=== PATIENT | male | born 1985 | race Caucasian/White ===

== ENCOUNTER → 2017-04-10 | Outpatient (CLI) | payer OTHER ==
--- NOTE | 2017-04-10 14:47 | Diagnostic Imaging Report ---
PROCEDURE: CT chest without contrast. TECHNIQUE: Multiple contiguous axial images were obtained through the chest without the use of intravenous contrast. INDICATION: History of RSV. Question pneumonia. Flulike and cold-like symptoms. EXAMINATION: CT chest without contrast 04/10/2017. COMPARISON: None. FINDINGS: There is a tree in bud type appearance to the right mid and upper lobe laterally most consistent with atypical pneumonia. A few very vague airspace opacities are scattered throughout the left mid lung. Similar findings seen in the periphery of the lingula. There are multiple airspace opacities throughout the left lower lobe. No pleural effusions are seen and there is no pericardial effusion. The nonopacified mediastinum demonstrates no mediastinal adenopathy or hilar adenopathy. There is no axillary adenopathy. Visualized upper abdominal structures demonstrate nonspecific findings due to lack of contrast. There is a vague hypodensity within the right lower liver anterior to the gallbladder. This could be better characterized with postcontrast imaging or sonography. Osseous structures unremarkable. IMPRESSION: 1. Scattered nonspecific airspace opacities throughout both lungs the largest areas are in the left lower lobe and could be due to a multifocal pneumonia. These would be atypical for process such as septic emboli given somewhat central appearance but clinical correlation with symptoms recommended. Additionally there is a tree in bud type appearance throughout the right mid and upper lobe typically seen in atypical type of pneumonia again correlation with symptoms recommended. Followup is recommended to assure complete resolution of these findings. 2. Vague hypodensity within right lobe of the liver is nonspecific without contrast see above description and recommendations. Report was faxed to office of Dr. Azevedo by shaka at 2:39 p.m. Dictated by: Dictated on workstation # [id number]
== END ==
LOC: RAD 11:19
PROVIDERS: ATTEND Internal Medicine Hematology
DX: J98.4 Other disorders of lung (principal); B97.4 Respiratory syncytial virus as the cause of diseases classified elsewhere
CPT/HCPCS: 71250

== ENCOUNTER → 2020-01-18 | Outpatient (CLI) | payer OTHER | LOC: LABNPT 10:38 | DX: R50.9 Fever, unspecified (principal); Z20.828 Contact with and (suspected) exposure to other viral communicable diseases | CPT/HCPCS: 87635 ==

== ENCOUNTER 2020-07-30 00:28 | Emergency (ER) | payer OTHER ==
[~2020-07-30] VITALS: Ht 180.3 cm; Wt 71.0 kg
[2020-07-30] MEDS ORDERED: NS IV 1000 ML 1,000 ML IV SCH (01:00)
[2020-07-30] MEDS ORDERED: ONDANSETRON 4 MG/2 ML (SDV) Z0FRAN IVP ONE (01:00)
--- NOTE | 2020-07-30 01:01 | ED Abdominal Pain ---
General Chief Complaint: Abdominal/GI Problems Stated Complaint: VOMITTING X 6.5 HOURS Nursing Triage Note: Pt ambulatory into ER with complaint of vomiting since 1800 last night. PT states that he was fine prior to that. Pt denies chest pain, or diarrhea. Pt states that lower back is sore, but states that its from throwing up so much. Pt has no other complaints. Sepsis Screen: No Definite Risk Source of Information: Patient Exam Limitations: No Limitations History of Present Illness Date Seen by Provider: Jul 30, 2020 Time Seen by Provider: 00:45 Initial Comments Patient is a 35-year-old male who presents to the emergency room by private vehicle this evening with a chief complaint of about 6-1/2 hours of profusely vomiting. Patient states that he felt well up until about 6 hours ago. He went golfing today ate some chicken tenders around 3:00 and then 3 hours later had the onset of severe nausea with vomiting continuously since that time. 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 He follows up yearly with [facility]. Patient denies any sick contacts recently. Nobody else is sick at home. He has a baby at home that is 10 days old. Patient complains of chills. No known fevers. He states he has a mild stomachache from the retching. He also states that diarrhea started approximately 1 hour prior to arrival. Patient denies any blood in his vomitus or in his stool. No coffee-ground emesis. He has a history of hypertension and also takes Pepcid for gastroesophageal reflux. He did attempt to take some Zofran this evening but believes that he vomited it back up. Patient has a history of orthopedic surgeries, hernia repair and liver biopsy. All other review of systems reviewed and negative except as stated. Timing/Duration: 4-6 Hours Severity/Quality: Severe, Aching Location: Generalized Abdomen Radiation: No Radiation Activities at Onset: None Associated Symptoms: Other (chills) Allergies and Home Medications Allergies Coded Allergies: No Known Drug Allergies (Unverified , 02/20/09) Home Medications Ondansetron 4 Mg Tab.rapdis, 4 MG PO Q8H PRN for nausea and vomiting Prescribed by: GIOVANA ANDREW on 07/30/20 0211 Patient Home Medication List Home Medication List Reviewed: Yes Review of Systems Review of Systems Constitutional: see HPI EENTM: No Symptoms Reported Respiratory: No Symptoms Reported Cardiovascular: No Symptoms Reported Gastrointestinal: Nausea, Vomiting Genitourinary: No Symptoms Reported Musculoskeletal: no symptoms reported Skin: no symptoms reported All Other Systems Reviewed Negative Unless Noted: Yes Past Ennvxew-Kugowe-Bkgudi Hx Patient Social History Alcohol Use: Denies Use 2nd Hand Smoke Exposure: No Recent Infectious Disease Expo: No Recent Hopitalizations: No Immunizations Up To Date Tetanus Booster (TDap): Less than 5yrs PED Vaccines UTD: Yes Seasonal Allergies Seasonal Allergies: No Past Medical History Surgeries: Yes Orthopedic Respiratory: No Cardiac: No Neurological: No Reproductive Disorders: No Sexually Transmitted Disease: No Genitourinary: No Gastrointestinal: No Musculoskeletal: No (ACL TEAR AND TEAR TO MENISCUS) Endocrine: No Cancer: Yes Leukemia Did You Recieve Any Treatments: Yes What Type of Treatment Did You: Chemotherapy, Radiation Remission since 2014 Psychosocial: No Integumentary: No Blood Disorders: No Physical Exam Vital Signs Vital Signs - First Documented 07/30/20 00:38 Temp 36.5 Pulse 126 Resp 16 B/P (MAP) 129/107 (114) O2 Delivery Room Air Capillary Refill : Less Than 3 Seconds Height/Weight/BMI Height: '" Weight: lbs. oz. kg; 21.00 BMI Method: General Appearance: WD/WN, no apparent distress HEENT: PERRL/EOMI, other (dry oral mucosa) Neck: full range of motion Respiratory: lungs clear, normal breath sounds, no respiratory distress, no accessory muscle use Cardiovascular: regular rate, rhythm Gastrointestinal: soft, abnormal bowel sounds (hypoactive) Extremities: normal range of motion, normal inspection Neurologic/Psychiatric: alert, normal mood/affect, oriented x 3 Skin: normal color, diaphoresis Progress/Results/Core Measures Results/Orders Lab Results Laboratory Tests Test 07/30/20 00:55 Range/Units White Blood Count 16.3 H 4.3-11.0 10^3/uL Red Blood Count 5.76 H 4.30-5.52 10^6/uL Hemoglobin 17.5 13.3-17.7 g/dL Hematocrit 50 40-54 % Mean Corpuscular Volume 86 80-99 fL Mean Corpuscular Hemoglobin 30 25-34 pg Mean Corpuscular Hemoglobin Concent 35 32-36 g/dL Red Cell Distribution Width 11.7 10.0-14.5 % Platelet Count 195 130-400 10^3/uL Mean Platelet Volume 10.4 9.0-12.2 fL Immature Granulocyte % (Auto) 0 % Neutrophils (%) (Auto) 91 H 42-75 % Lymphocytes (%) (Auto) 3 L 12-44 % Monocytes (%) (Auto) 5 0-12 % Eosinophils (%) (Auto) 0 0-10 % Basophils (%) (Auto) 0 0-10 % Neutrophils # (Auto) 14.8 H 1.8-7.8 10^3/uL Lymphocytes # (Auto) 0.5 L 1.0-4.0 10^3/uL Monocytes # (Auto) 0.8 0.0-1.0 10^3/uL Eosinophils # (Auto) 0.0 0.0-0.3 10^3/uL Basophils # (Auto) 0.0 0.0-0.1 10^3/uL Immature Granulocyte # (Auto) 0.1 0.0-0.1 10^3/uL Neutrophils % (Manual) 88 % Lymphocytes % (Manual) 2 % Monocytes % (Manual) 7 % Band Neutrophils 3 % Blood Morphology Comment NORMAL Sodium Level 141 135-145 MMOL/L Potassium Level 3.9 3.6-5.0 MMOL/L Chloride Level 103 98-107 MMOL/L Carbon Dioxide Level 20 L 21-32 MMOL/L Anion Gap 18 H 5-14 MMOL/L Blood Urea Nitrogen 19 H 7-18 MG/DL Creatinine 1.22 0.60-1.30 MG/DL Estimat Glomerular Filtration Rate > 60 BUN/Creatinine Ratio 16 Glucose Level 163 H 70-105 MG/DL Calcium Level 9.8 8.5-10.1 MG/DL My Orders Orders - GIOVANA ANDREW MD Ed Iv/Invasive Line Start (07/30/20 00:51) Cbc With Automated Diff (07/30/20 00:51) Basic Metabolic Panel (07/30/20 00:51) Ns Iv 1000 Ml (Sodium Chloride 0.9%) (07/30/20 01:00) Ondansetron Injection (Zofran Injectio (07/30/20 01:00) Manual Differential (07/30/20 00:55) Rx-Ondansetron Po (Rx-Zofran Po) (07/30/20 02:01) Promethazine Injection (Phenergan Injec (07/30/20 02:15) Pantoprazole Injection (Protonix Injecti (07/30/20 03:45) Diphenhydramine Injection (Benadryl Inje (07/30/20 03:45) Medications Given in ED Current Medications Medications Dose Ordered Sig/Jennifer Route Start Time Stop Time Status Last Admin Dose Admin Ondansetron HCl 8 mg ONCE ONCE IVP 07/30/20 01:00 07/30/20 01:01 DC 07/30/20 01:01 8 MG Promethazine HCl 25 mg ONCE ONCE IVP 07/30/20 02:15 07/30/20 02:16 DC 07/30/20 02:17 25 MG Vital Signs/I&O 07/30/20 00:38 Temp 36.5 Pulse 126 Resp 16 B/P (MAP) 129/107 (114) O2 Delivery Room Air Blood Pressure Mean: 114 Progress Progress Note : Time: 01:24 Progress Note re-evaluated patient states feels that nausea is much better; having chills. 0201 continuing to feel better. chills have improved. trying to sip on some water. 0227 drank some water and got up to the bathroom. by the time he got back to bed, started retching again. will follow up with some phenergan. 0424 after phenergan and benadryl, feeling some improvement. desires discharge. will send home with ODT zofran Departure Impression Primary Impression: Acute gastroenteritis Disposition: 01 HOME, SELF-CARE Condition: Stable Departure-Patient Inst. Decision time for Depature: 02:02 Referrals: NO,LOCAL PHYSICIAN (PCP/Family) Primary Care Physician Patient Instructions: [id number] Add. Discharge Instructions: [place] diet for the next 12 to 24 hours. Sip on clear liquids throughout the day tomorrow. Try to stay well-hydrated. Take the Zofran, 4 mg tablets every 6-8 hours as needed for nausea and vomiting. Return to the emergency department if you have any fever over 101, return of nausea and vomiting abdominal pain or other emergent concerning symptoms. Scripts Ondansetron (Ondansetron Odt) 4 Mg Tab.rapdis 4 MG PO Q8H PRN for nausea and vomiting, #30 TAB Prov: GIOVANA ANDREW MD 07/30/20 GIOVANA ANDREW MD Jul 30, 2020 01:01
[2020-07-30 01:03] LABS: BASOPHILS % (AUTO) 0 % (0-10); EOSINOPHILS % (AUTO) 0 % (0-10); HEMATOCRIT 50 % (40-54); HEMOGLOBIN 17.5 g/dL (13.3-17.7); LYMPHOCYTES # (AUTO) 0.5 10^3/uL (1.0-4.0); LYMPHOCYTES % (AUTO) 3 % (12-44); MEAN CORPUSCULAR HEMOGLOBIN 30 pg (25-34); MEAN CORPUSCULAR HGB CONC 35 g/dL (32-36); MEAN CORPUSCULAR VOLUME 86 fL (80-99); MEAN PLATELET VOLUME 10.4 fL (9.0-12.2); MONOCYTES # (AUTO) 0.8 10^3/uL (0.0-1.0); MONOCYTES % (AUTO) 5 % (0-12); NEUTROPHILS # (AUTO) 14.8 10^3/uL (1.8-7.8); NEUTROPHILS % (AUTO) 91 % (42-75); PLATELET COUNT 195 10^3/uL (130-400); WHITE BLOOD COUNT 16.3 10^3/uL (4.3-11.0)
[2020-07-30 01:16] LABS: CHLORIDE 103 MMOL/L (98-107); POTASSIUM 3.9 MMOL/L (3.6-5.0); SODIUM 141 MMOL/L (135-145)
[2020-07-30 01:17] LABS: CALCIUM 9.8 MG/DL (8.5-10.1); GLUCOSE 163 MG/DL (70-105)
[2020-07-30 01:19] LABS: CARBON DIOXIDE 20 MMOL/L (21-32)
[2020-07-30 01:21] LABS: CREATININE SERUM 1.22 MG/DL (0.60-1.30); GFR ESTIMATED > 60
[2020-07-30 01:22] LABS: BUN/CREATININE RATIO 16
[2020-07-30 01:45] LABS: BAND NEUTROPHILS 3 %; LYMPHOCYTES % (MANUAL) 2 %; MONOCYTES % (MANUAL) 7 %; NEUTROPHILS % (MANUAL) 88 %; RBC MORPH NORMAL
[2020-07-30] MEDS ORDERED: RX-ONDANSETRON 4 MG ODT (ZOFRAN) PPK #4 PO STA ×2 (02:01→04:26)
[2020-07-30] MEDS ORDERED: ONDA4TAB11 PO (02:11)
[2020-07-30] MEDS ORDERED: PROMETHAZINE INJ 25 MG/ML (PHENERGAN) AMP IVP ONE (02:15)
[2020-07-30] MEDS ORDERED: PANTOPRAZOLE 40 MG (PROTONIX) VIAL IV ONE (03:45)
[2020-07-30] MEDS ORDERED: diphenhydrAMINE 50 MG/ML INJ (BENADRYL) IM ONE (03:45)
[2020-07-30 04:36] VITALS: BP 116/77
== END 2020-07-30 04:36 | disposition home or self-care (01) ==
LOC: EDUNIT# 00:28 → ER 00:30
DX: K52.9 Noninfective gastroenteritis and colitis, unspecified (principal); K21.9 Gastro-esophageal reflux disease without esophagitis; I10 Essential (primary) hypertension
CPT/HCPCS: 36415; 80048; 85007; 85027